=== PATIENT | male | born 1995 | race Caucasian/White ===

== ENCOUNTER 2017-09-18 01:33 | Emergency (ER) | payer OTHER ==
[~2017-09-18] VITALS: Ht 170.2 cm; Wt 65.1 kg
[~2017-09-18 01:33] MED LIST: ATARAX,VISTARIL25 MG PO; AZITHROMYCIN250 MG PO; FLOMAX0.4 MG PO; KLONOPIN0.5 M1 PO; NORCO 5/3251 TABLET PO; PEPCID20 MG PO; PREDNISONE50 MG PO; PROAIR RESPICL90 MCG IH; PROZAC10 MG PO; ZOFRAN ODT4 MG PO
[2017-09-18 01:54] LABS: HEMATOCRIT 45.7 % (38.0-50.0); HEMOGLOBIN 16.6 G/DL (12.5-16.6); MCH 29.8 PG (29.0-34.0); MCHC 36.3 G/DL (30.0-36.0); PLATELET COUNT 185 K/uL (156-360); RBC DIS.WIDTH-CV 12.1 % (11.8-14.6); RBC DIS.WIDTH-SD 36.4 % (39-53); RED BLOOD COUNT 5.57 M/uL (4.00-5.50); WHITE BLOOD COUNT 9.1 K/uL (4.1-10.2)
[2017-09-18 02:02] LABS: CHLORIDE 104 mEq/L (99-109); POTASSIUM 3.6 mEq/L (3.7-5.4); SODIUM 141 mEq/L (136-147)
[2017-09-18 02:03] LABS: GLUCOSE 123 mg/dL (70-99)
[2017-09-18 02:07] LABS: CREATININE 1.3 mg/dL (0.6-1.3); GFR ESTIMATE (CALCULATED) > 59 mL/min/ (58.99-99999)
[2017-09-18 02:08] LABS: UREA NITROGEN (BUN) 19 mg/dL (9-23)
[2017-09-18 02:15] LABS: TROP-I INTERPRETATION NEGATIVE; TROPONIN-I < 0.01 ng/mL (0.0-0.30)
[2017-09-18 06:13] LABS: MAGNESIUM 2.7 mg/dL (1.3-2.7)
[2017-09-18 06:32] VITALS: BP 133/75
[2017-09-18 06:37] LABS: TROP-I INTERPRETATION NEGATIVE; TROPONIN-I < 0.01 ng/mL (0.0-0.30)
== END 2017-09-18 06:47 | disposition home or self-care (01) ==
LOC: EME 01:33
PROVIDERS: Emergency Medicine
DX: F41.9 Anxiety disorder, unspecified (principal); R00.2 Palpitations; R94.31 Abnormal electrocardiogram [ECG] [EKG]
CPT/HCPCS: 71046; 80048; 83735; 84484; 85027; 93005; 99281; 99285; J2060; J7120